=== PATIENT | male | born 1995 | race Caucasian/White ===

== ENCOUNTER 2017-05-12 22:28 | Emergency (ER) | payer OTHER ==
[~2017-05-12] VITALS: Ht 177.8 cm; Wt 60.7 kg
[2017-05-12 22:56] LABS: HEMATOCRIT 41.7 % (38.0-50.0); MCH 28.4 PG (29.0-34.0); MCHC 33.6 G/DL (30.0-36.0); MCV 84.6 FL (86-99); MEAN PLAT.VOLUME 11.1 uM^3 (9.0-12.4); PLATELET COUNT 232 K/uL (156-360); RBC DIS.WIDTH-CV 12.4 % (11.8-14.6); RED BLOOD COUNT 4.93 M/uL (4.00-5.50); WHITE BLOOD COUNT 8.8 K/uL (4.1-10.2)
[2017-05-12 23:02] LABS: ADD MIUA? YES; BILIRUBIN NEGATIVE; BLOOD NEGATIVE; COLOR YELLOW ((YELLOW)); GLUCOSE (STRIP) NEGATIVE; KETONES NEGATIVE; LEUKOCYTES NEGATIVE; NITRITE NEGATIVE; PROTEIN (STRIP) NEGATIVE; SPECIFIC GRAVITY 1.012 (1.000-1.030); UROBILINOGEN 0.2 MG/DL (0.2-1.0)
[2017-05-12 23:04] LABS: CHLORIDE 100 mEq/L (99-109); POTASSIUM 3.6 mEq/L (3.7-5.4); SODIUM 138 mEq/L (136-147)
[2017-05-12 23:07] LABS: GLUCOSE 101 mg/dL (70-99)
[2017-05-12 23:08] LABS: ANION GAP 11 MEQ/L (2-14)
[2017-05-12 23:09] LABS: TOTAL BILIRUBIN 0.6 mg/dL (0.0-1.0)
[2017-05-12 23:10] LABS: BACTERIA RARE /HPF; EPITHELIAL CELLS RARE /HPF; MUCUS TRACE /LPF; RED BLOOD CELLS 0-5 /HPF (0-5); UCUL ADDED? NO; WHITE BLOOD CELLS 0-5 /HPF (0-5)
[2017-05-12 23:10] LABS: ALKALINE PHOSPHATASE 81 IU/L (3-129)
[2017-05-12 23:12] LABS: UREA NITROGEN (BUN) 18 mg/dL (9-23)
[2017-05-12 23:13] LABS: GFR ESTIMATE (CALCULATED) > 59 mL/min/
[2017-05-12 23:14] LABS: CREATINE KINASE 94 IU/L (1-294); LIPASE 9 U/L (1.0-51.0); TOTAL CK 94 IU/L (1-294)
[2017-05-12 23:20] LABS: CK-MB 0.6 ng/mL (0.0-4.9)
[2017-05-12] MEDS ORDERED: ZOFRAN8 MG PO (23:41)
[2017-05-12] MEDS ORDERED: BENTYL20 MG PO (23:41)
[2017-05-13 00:07] VITALS: BP 130/83
== END 2017-05-13 00:10 | disposition home or self-care (01) ==
LOC: EME 22:28
PROVIDERS: Emergency Medicine
DX: R11.2 Nausea with vomiting, unspecified (principal); K59.00 Constipation, unspecified
CPT/HCPCS: 74022; 80053; 81003; 82550; 82553; 83690; 85027; 99281; 99284